=== PATIENT | male | born 1950 | race Caucasian/White ===

== ENCOUNTER 2024-06-08 10:54 | Outpatient (REF) | payer OTHER, SELFPAY ==
--- NOTE | ~2024-06-08 | US_ITS ---
EXAMINATION: US ABDOMEN COMPLETE CLINICAL INFORMATION: Abdominal pain. Elevated LFTs. COMPARISON: None available. TECHNIQUE: Real-time imaging of the abdominal viscera. FINDINGS: PANCREAS: The visualized pancreatic head and body are unremarkable. Detail is secured by bowel gas. ABDOMINAL AORTA: The proximal, mid, and distal segments are normal in caliber. INFERIOR VENA CAVA: Visualized portions are normal. LIVER: Enlarged measuring up to 21.4 cm. The liver contour is normal. Increased hepatic parenchymal echogenicity. No focal hepatic lesion. There is no intrahepatic biliary duct dilatation seen. GALLBLADDER: Multiple gallstones. No gallbladder wall thickening or pericholecystic free fluid to suggest acute cholecystitis. The gallbladder is physiologically distended without evidence of stones, sludge, polyps, wall thickening or pericholecystic fluid. COMMON BILE DUCT: Normal in caliber measuring 0.7 cm in diameter. RIGHT KIDNEY: Unremarkable. No hydronephrosis. No renal calculi or focal parenchymal lesions. The kidney measures 12.2 cm in maximum dimension. LEFT KIDNEY: Unremarkable. No hydronephrosis. No renal calculi or focal parenchymal lesions. The kidney measures 12.8 cm in maximum dimension. SPLEEN: Unremarkable. The spleen measures 11 cm in maximum dimension. FREE FLUID: None. US/US abdomen complete IMPRESSION: 1. Hepatomegaly. Increased hepatic parenchymal echogenicity, which can be seen in the setting of steatosis. Underlying hepatocellular disease cannot be excluded. No hepatic parenchymal lesion or biliary ductal dilatation. 2. Cholelithiasis without gallbladder wall thickening or pericholecystic free fluid to suggest acute cholecystitis. Electronically signed by: Jose Plata MD 06/08/2024 01:07 PM [facility] [place]
== END 2024-06-08 10:55 | disposition home or self-care (01) ==
LOC: HO.UMASIMG 10:54
PROVIDERS: Visit Provider Family Medicine
DX: R10.9 Unspecified abdominal pain (principal)
CPT/HCPCS: 76700